=== PATIENT | female | born 1990 | race African-American/Black ===

== ENCOUNTER 2016-04-03 18:41 | Emergency (ER) | payer OTHER ==
[2016-04-03] MEDS ORDERED: KETOROLAC 30 MG/ML VIAL (J1885) As Ordered ONE (21:26)
--- NOTE | 2016-04-03 23:35 | EDDOCDS ---
Nurse's Notes [facility] Name: Billy Payne Age: 26 yrs Sex: Female : 1990 Arrival Date: 04/03/2016 Time: 18:41 Bed PR Private MD: GAIL Govea Diagnosis: Pain in left shoulder Presentation: 04/03 18:50 Presenting complaint: Patient states: dislocated shoulder yesterday and patient self hs1 reduced and was told to come be seen by SGT. Patient reports pain 9/10 pain. Adult Sepsis Screening: The patient does not have new or worsening altered mentation. Patient's respiratory rate is less than 22. Systolic blood pressure is greater than 100. Patient has a qSOFA score of 0- Negative Sepsis Screen. Suicide/Homicide risk assessment- the patient denies having any suicidal and/or homicidal ideations and does not present with any other emotional, behavioral or mental health complaints. 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 Transition of care: patient was not received from another setting of care. 18:50 Acuity: CARISA Level 4 hs1 18:50 Method Of Arrival: Walkin/Carried/Asstd hs1 Triage Assessment: 18:52 General: Appears in no apparent distress, Behavior is appropriate for age, cooperative. hs1 Pain: Location: anterior aspect of left shoulder and posterior aspect of left shoulder Pain currently is 9 out of 10 on a pain scale. Pt Declines HIV testing. Respiratory: No deficits noted. Derm: No deficits noted. Musculoskeletal: Range of motion limited in left shoulder. 21:08 I have visited this patient for a triage reassessment. 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 Tylenol 325 mg Oral tab 2 tabs (Last dose: 04/03/2016 15:00) - PMHx: none; - PSHx: none; - Social history: Smoking status: Patient states was never smoker of tobacco. No barriers to communication noted, The patient speaks fluent Northern Irish, Speaks appropriately for age. - Family history: No immediate family members are acutely ill. - : The pt / caregiver states he / she is not on anticoagulants. Home medication list is obtained from the patient. - Exposure Risk Screening:: None identified. Screenin:32 Screening information is obtained from the patient. Fall risk: No risks identified. nn1 Assistance ADL's: requires no assistance with activities of daily living. Abuse/DV Screen: The patient / caregiver reports he/she is: not in a situation that causes fear, pain or injury. Nutritional screening: No deficits noted. Advance Directives: There is no active DNR order. home support is adequate. Assessment: 21:07 Adult Sepsis Screening: The patient does not have new or worsening altered mentation. dsf Patient's respiratory rate is less than 22. Systolic blood pressure is greater than 100. Patient has a qSOFA score of 0- Negative Sepsis Screen. General: Appears in no apparent distress, Behavior is appropriate for age, cooperative. Pain: Location: left shoulder Pain currently is 10 out of 10 on a pain scale. Pain radiates to back Quality of pain is described as burning, sharp. Neurological: Level of Consciousness is awake, alert. Respiratory: Airway is patent Respiratory effort is even, unlabored, Respiratory pattern is regular, symmetrical. Derm: Skin is pink, warm & dry. 23:32 Reassessment: Patient states feeling better. Patient states symptoms have improved. nn1 General: Appears in no apparent distress, Behavior is appropriate for age, cooperative. Neurological: Level of Consciousness is awake, alert. Respiratory: Airway is patent Respiratory effort is even, unlabored, Respiratory pattern is regular, symmetrical. Derm: Skin is pink, warm & dry. 23:33 Musculoskeletal: Range of motion limited in left shoulder No deformity noted. nn1 Vital Signs: 18:43 BP 137 / 59; Pulse 71; Resp 18; Temp 99.1; Pulse Ox 100% ; Weight 61.23 kg; Height 5 elp ft. 4 in. (162.56 cm); 21:06 BP 115 / 55; Pulse 57; Resp 20; Temp 97.6(T); Pulse Ox 100% on R/A; Pain 10/10; dsf 23:29 BP 131 / 66; Pulse 51; Resp 20; Temp 96.4(O); Pulse Ox 100% on R/A; Pain 6/10; jmv 18:43 Body Mass Index 23.17 (61.23 kg, 162.56 cm) [facility] Vitals: 18:43 Log In Time: April 03, 2016 at 18:41. [facility] ED Course: 18:42 Patient visited by Radha Robison PCA. elp 18:42 Patient moved to Waiting elp 18:43 Jeferson [facility] is Private Physician. elp 18:43 Patient visited by Radha Robison PCA. elp 18:44 Patient moved to Pre RCE elp 18:51 Triage Initiated hs1 20:24 Patient name changed from Elver'hernesto\S\\S\Elmer\S\ to Elver'hernesto\S\ \S\Elmer. EDMS 21:04 Patient moved to Triage 2 dsf 21:08 Patient visited by Alisson Zamora RN. dsf 21:17 Judd [facility]-C [facility] ck7 21:17 Isaak Ramos MD is Attending Physician. ck7 21:17 Patient visited by Judd Mcghee RPA-C. ck7 21:29 Patient moved to PR2 / 26 nn1 21:30 [facility] Payment Agreement was scanned into [employer] and attached to record. ks16 21:34 Patient visited by Delmy Mistry. ajs 22:21 Patient visited by Judd Mcghee RPA-C. ck7 23:05 Patient visited by Judd Mcghee RPA-C. ck7 23:07 MICHELLE Govea is Referral Physician. ck7 23:29 Patient visited by Ronen Mulligan PCA. jmv 23:32 No IV's were initiated during this patient's visit. No procedures done that require nn1 assistance. 23:33 Sling applied to left arm. Patient with positive distal sensation and brisk distal nn1 capillary refill after application. 23:34 The patient / caregiver is instructed regarding the plan of care and ED course. nn1 Administered Medications: 21:40 Drug: ketorolac 60 mg [ketorolac 30 mg/mL (1 mL) injection solution (2 mL)] Route: IM; nn1 Site: left gluteus; Point of Care Testing: Urine : 21:34 hCG Reading: Negative; Control Reading: Positive; ajs Ranges: Order Results: There are currently no results for this order. Outcome: 23:07 Discharge ordered by Provider. ck7 23:33 Discharge Assessment: Patient awake, alert and oriented x 3. No cognitive and/or nn1 functional deficits noted. Patient verbalized understanding of disposition instructions. patient administered narcotics - no. The following High Risk Discharge criteria are identified: None. Discharged to home ambulatory. Condition: stable. No special radiology studies were completed. Property :Personal belongings accompany Pt. 23:34 Patient left the ED. nn1 Signatures: Dispatcher [employer] EDMA Blossom Bowman, RN RN hs1 Alisson ZamoraRN RN dsDelmy Manzano Christopher, RPA-C RPA-Cck7 Radha Robison, PATIENT SUPPORT ASSOCIATE PATIENT SUPPORT ASSOCIATE darrellp Dave Sheets,RN RN nn1 Giovanna Schwartz, Reg Reg ks16 Mulligan, Ronen, PATIENT SUPPORT ASSOCIATE PATIENT SUPPORT ASSOCIATE jmv MTDD
--- NOTE | 2016-04-03 23:35 | EDDOCDS ---
Physician Documentation [facility] Name: Billy Payne Age: 26 yrs Sex: Female : 1990 Arrival Date: 04/03/2016 Time: 18:41 Bed PR Private MD: GAIL Govea Disposition: 04/03/16 23:07 Discharged to Home/Self Care. Impression: Pain in left shoulder. - Condition is Stable. - Discharge Instructions: Shoulder Pain. - Prescriptions for Ibuprofen 600 mg Oral Tablet - take 1 tablet by ORAL route every 6 hours As needed take with food; 30 tablet. - Medication Reconciliation, Local Pharmacy Hours form. - Follow up: GAIL Govea; When: Tomorrow; Reason: Recheck today's complaints, Continuance of care. - Problem is new. - Symptoms have improved. - Notes: USE MOTRIN AND SLING INSTRUCTED, FOLLOW UP WITH YOUR DOCTOR TOMORROW, YOU MAY NEED A REFERRAL FOR ORTHOPEDIC EVALUATION Historical: - Allergies: Morphine; - Home Meds: 1. Tylenol 325 mg Oral tab 2 tabs (Last dose: 04/03/2016 15:00) - PMHx: none; - PSHx: none; - Social history: Smoking status: Patient states was never smoker of tobacco. No barriers to communication noted, The patient speaks fluent French, Speaks appropriately for age. - Family history: No immediate family members are acutely ill. - : The pt / caregiver states he / she is not on anticoagulants. Home medication list is obtained from the patient. - Exposure Risk Screening:: None identified. 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 4 in. (162.56 cm); 21:06 BP 115 / 55; Pulse 57; Resp 20; Temp 97.6(T); Pulse Ox 100% on R/A; Pain 10/10; dsf 23:29 BP 131 / 66; Pulse 51; Resp 20; Temp 96.4(O); Pulse Ox 100% on R/A; Pain 6/10; jmv 18:43 Body Mass Index 23.17 (61.23 kg, 162.56 cm) elp Procedures: 23:06 Fracture care/splinting: Splint applied to left arm using sling, applied by nurse. ck7 Examined by me, post splint application: neurovascular intact, 2+ distal pulses palpable, brisk capillary refill noted, Patient tolerated well. MDM: 21:22 ketorolac 60 mg IM once ordered. ck7 21:22 UCG by Nursing ordered. ck7 21:23 Shoulder, Complete Ordered. EDMS 21:23 Clavicle Ordered. EDMS 21:29 Financial registration complete. ks16 21:30 [facility] Payment Agreement was scanned into [employer] and attached to record. ks16 23:06 Sling ordered. ck7 Point of Care Testing: Urine : 21:34 hCG Reading: Negative; Control Reading: Positive; ajs Ranges: Administered Medications: 21:40 Drug: ketorolac 60 mg [ketorolac 30 mg/mL (1 mL) injection solution (2 mL)] Route: IM; nn1 Site: left gluteus; Signatures: Dispatcher [employer] Blossom Stokes, RN RN hs1 Judd Mcghee, RPA-C RPA-Cck7 Dave Sheets RN RN nn1 Giovanna Schwartz, Reg Reg ks16 The chart was reviewed and I authenticate all verbal orders and agree with the evaluation and treatment provided.Attachments: 21:30 [facility] Payment Agreement ks16 MTDD
--- NOTE | 2016-04-04 02:35 | REP ---
The clinical: Deformity/swelling. Technique: AP and axial views of the left clavicle. Findings: Sternoclavicular and acromioclavicular joints are normal. The clavicle is intact and there is no evidence for acute fracture or dislocation/subluxation. No degenerative changes are appreciated. Surrounding soft tissues are unremarkable. Impression: Normal left clavicle radiographs. Signed by Yaya Woods MD 04/04/2016 02:26 A
--- NOTE | 2016-04-04 02:37 | REP ---
Clinical: Deformity/swelling. . Technique: Internal rotation, external rotation, and Y view left shoulder . Findings: No acute fracture or dislocation. The acromioclavicular and glenohumeral joints are intact. No periarticular calcifications or degenerative changes are appreciated. Sub acromial space is normal. Surrounding soft tissues are unremarkable. Impression: Normal left shoulder radiographs. Signed by Yaya Woods MD 04/04/2016 02:28 A
--- NOTE | 2016-04-06 00:35 | EDDOCDS ---
Physician Documentation [facility] Name: Billy Payne Age: 26 yrs Sex: Female : 1990 Arrival Date: 04/03/2016 Time: 18:41 Bed PR Private MD: GAIL Govea Disposition: 04/03/16 23:07 Discharged to Home/Self Care. Impression: Pain in left shoulder. - Condition is Stable. - Discharge Instructions: Shoulder Pain. - Prescriptions for Ibuprofen 600 mg Oral Tablet - take 1 tablet by ORAL route every 6 hours As needed take with food; 30 tablet. - Medication Reconciliation, Local Pharmacy Hours form. - Follow up: GAIL Govea; When: Tomorrow; Reason: Recheck today's complaints, Continuance of care. - Problem is new. - Symptoms have improved. - Notes: USE MOTRIN AND SLING INSTRUCTED, FOLLOW UP WITH YOUR DOCTOR TOMORROW, YOU MAY NEED A REFERRAL FOR ORTHOPEDIC EVALUATION Historical: - Allergies: Morphine; - Home Meds: 1. Tylenol 325 mg Oral tab 2 tabs (Last dose: 04/03/2016 15:00) - PMHx: none; - PSHx: none; - Social history: Smoking status: Patient states was never smoker of tobacco. No barriers to communication noted, The patient speaks fluent Faroese, Speaks appropriately for age. - Family history: No immediate family members are acutely ill. - : The pt / caregiver states he / she is not on anticoagulants. Home medication list is obtained from the patient. - Exposure Risk Screening:: None identified. 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 4 in. (162.56 cm); 21:06 BP 115 / 55; Pulse 57; Resp 20; Temp 97.6(T); Pulse Ox 100% on R/A; Pain 10/10; dsf 23:29 BP 131 / 66; Pulse 51; Resp 20; Temp 96.4(O); Pulse Ox 100% on R/A; Pain 6/10; jmv 18:43 Body Mass Index 23.17 (61.23 kg, 162.56 cm) elp Procedures: 23:06 Fracture care/splinting: Splint applied to left arm using sling, applied by nurse. ck7 Examined by me, post splint application: neurovascular intact, 2+ distal pulses palpable, brisk capillary refill noted, Patient tolerated well. MDM: 21:22 ketorolac 60 mg IM once ordered. ck7 21:22 UCG by Nursing ordered. ck7 21:23 Shoulder, Complete Ordered. EDMS 21:23 Clavicle Ordered. EDMS 21:29 Financial registration complete. ks16 21:30 [facility] Payment Agreement was scanned into [employer] and attached to record. ks16 23:06 Sling ordered. ck7 04/04 12:10 T-Sheet-- Draft Copy was scanned into [employer] and attached to record. gb Point of Care Testing: Urine : 04/03 21:34 hCG Reading: Negative; Control Reading: Positive; ajs Ranges: Administered Medications: 21:40 Drug: ketorolac 60 mg [ketorolac 30 mg/mL (1 mL) injection solution (2 mL)] Route: IM; nn1 Site: left gluteus; Signatures: Dispatcher [employer] EDRI Alisia Hull, Reg Reg gb Blossom Bowman, RN RN hs1 Judd Mcghee RPA-C RPA-Cck7 Dave SheetsRN RN nn1 Giovanna Schwartz, Reg Reg ks16 The chart was reviewed and I authenticate all verbal orders and agree with the evaluation and treatment provided.Attachments: :30 [facility] Payment Agreement ks16 04/04 12:10 T-Sheet-- Draft Copy gb Chart Complete MTDD
--- NOTE | 2016-04-06 00:35 | EDDOCDS ---
Nurse's Notes [facility] Name: Billy Payne Age: 26 yrs Sex: Female : 1990 Arrival Date: 04/03/2016 Time: 18:41 Bed PR Private MD: GAIL Govea Diagnosis: Pain in left shoulder Presentation: 04/03 18:50 Presenting complaint: Patient states: dislocated shoulder yesterday and patient self hs1 reduced and was told to come be seen by SGT. Patient reports pain 9/10 pain. Adult Sepsis Screening: The patient does not have new or worsening altered mentation. Patient's respiratory rate is less than 22. Systolic blood pressure is greater than 100. Patient has a qSOFA score of 0- Negative Sepsis Screen. Suicide/Homicide risk assessment- the patient denies having any suicidal and/or homicidal ideations and does not present with any other emotional, behavioral or mental health complaints. 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 Transition of care: patient was not received from another setting of care. 18:50 Acuity: CARISA Level 4 hs1 18:50 Method Of Arrival: Walkin/Carried/Asstd hs1 Triage Assessment: 18:52 General: Appears in no apparent distress, Behavior is appropriate for age, cooperative. hs1 Pain: Location: anterior aspect of left shoulder and posterior aspect of left shoulder Pain currently is 9 out of 10 on a pain scale. Pt Declines HIV testing. Respiratory: No deficits noted. Derm: No deficits noted. Musculoskeletal: Range of motion limited in left shoulder. 21:08 I have visited this patient for a triage reassessment. 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 Tylenol 325 mg Oral tab 2 tabs (Last dose: 04/03/2016 15:00) - PMHx: none; - PSHx: none; - Social history: Smoking status: Patient states was never smoker of tobacco. No barriers to communication noted, The patient speaks fluent Faroese, Speaks appropriately for age. - Family history: No immediate family members are acutely ill. - : The pt / caregiver states he / she is not on anticoagulants. Home medication list is obtained from the patient. - Exposure Risk Screening:: None identified. Screenin:32 Screening information is obtained from the patient. Fall risk: No risks identified. nn1 Assistance ADL's: requires no assistance with activities of daily living. Abuse/DV Screen: The patient / caregiver reports he/she is: not in a situation that causes fear, pain or injury. Nutritional screening: No deficits noted. Advance Directives: There is no active DNR order. home support is adequate. Assessment: 21:07 Adult Sepsis Screening: The patient does not have new or worsening altered mentation. dsf Patient's respiratory rate is less than 22. Systolic blood pressure is greater than 100. Patient has a qSOFA score of 0- Negative Sepsis Screen. General: Appears in no apparent distress, Behavior is appropriate for age, cooperative. Pain: Location: left shoulder Pain currently is 10 out of 10 on a pain scale. Pain radiates to back Quality of pain is described as burning, sharp. Neurological: Level of Consciousness is awake, alert. Respiratory: Airway is patent Respiratory effort is even, unlabored, Respiratory pattern is regular, symmetrical. Derm: Skin is pink, warm & dry. 23:32 Reassessment: Patient states feeling better. Patient states symptoms have improved. nn1 General: Appears in no apparent distress, Behavior is appropriate for age, cooperative. Neurological: Level of Consciousness is awake, alert. Respiratory: Airway is patent Respiratory effort is even, unlabored, Respiratory pattern is regular, symmetrical. Derm: Skin is pink, warm & dry. 23:33 Musculoskeletal: Range of motion limited in left shoulder No deformity noted. nn1 Vital Signs: 18:43 BP 137 / 59; Pulse 71; Resp 18; Temp 99.1; Pulse Ox 100% ; Weight 61.23 kg; Height 5 elp ft. 4 in. (162.56 cm); 21:06 BP 115 / 55; Pulse 57; Resp 20; Temp 97.6(T); Pulse Ox 100% on R/A; Pain 10/10; dsf 23:29 BP 131 / 66; Pulse 51; Resp 20; Temp 96.4(O); Pulse Ox 100% on R/A; Pain 6/10; jmv 18:43 Body Mass Index 23.17 (61.23 kg, 162.56 cm) [facility] Vitals: 18:43 Log In Time: April 03, 2016 at 18:41. [facility] ED Course: 18:42 Patient visited by Radha Robison PCA. elp 18:42 Patient moved to Waiting elp 18:43 Jeferson [facility] is Private Physician. elp 18:43 Patient visited by Radha Robison PCA. elp 18:44 Patient moved to Pre RCE elp 18:51 Triage Initiated hs1 20:24 Patient name changed from Elver'hernesto\S\\S\Elmer\S\ to Elver'hernesto\S\ \S\Elmer. EDMS 21:04 Patient moved to Triage 2 dsf 21:08 Patient visited by Alisson Zamora RN. dsf 21:17 [facility] ck7 21:17 Isaak Ramos MD is Attending Physician. ck7 21:17 Patient visited by Judd Mcghee RPA-C. ck7 21:29 Patient moved to PR2 / nn1 21:30 [facility] Payment Agreement was scanned into [employer] and attached to record. ks16 21:34 Patient visited by Delmy Mistry. ajs 22:21 Patient visited by Judd Mcghee RPA-C. ck7 23:05 Patient visited by Judd Mcghee RPA-C. ck7 23:07 Jeferson [facility] is Referral Physician. ck7 23:29 Patient visited by Ronen Mulligan PCA. jmv 23:32 No IV's were initiated during this patient's visit. No procedures done that require nn1 assistance. 23:33 Sling applied to left arm. Patient with positive distal sensation and brisk distal nn1 capillary refill after application. 23:34 The patient / caregiver is instructed regarding the plan of care and ED course. nn1 08 02:39 Clavicle Returned. EDMS 02:39 Shoulder, Complete Returned. EDMS 12:10 T-Sheet-- Draft Copy was scanned into [employer] and attached to record. gb Administered Medications: 04/03 21:40 Drug: ketorolac 60 mg [ketorolac 30 mg/mL (1 mL) injection solution (2 mL)] Route: IM; nn1 Site: left gluteus; Point of Care Testing: Urine : 21:34 hCG Reading: Negative; Control Reading: Positive; ajs Ranges: Order Results: Radiology Order: Shoulder, Complete Test: Shoulder, Complete REASON FOR EXAMINATION: Deformity/Swelling; Clinical: Deformity/swelling. .; ; Technique: Internal rotation, external rotation, and Y view left shoulder .; ; Findings:; No acute fracture or dislocation. The acromioclavicular and glenohumeral joints; are intact. No periarticular calcifications or degenerative changes are; appreciated. Sub acromial space is normal. Surrounding soft tissues are; unremarkable.; ; Impression:; Normal left shoulder radiographs.; ; ; Signed by; Yaya Woods MD 04/04/2016 02:28 A; Radiology Order: Clavicle Test: Clavicle REASON FOR EXAMINATION: Deformity/Swelling; The clinical: Deformity/swelling.; ; Technique: AP and axial views of the left clavicle.; ; Findings:; Sternoclavicular and acromioclavicular joints are normal. The clavicle is intact; and there is no evidence for acute fracture or dislocation/subluxation. No; degenerative changes are appreciated. Surrounding soft tissues are; unremarkable.; ; Impression:; Normal left clavicle radiographs.; ; ; Signed by; Yaya Woods MD 04/04/2016 02:26 A; Outcome: 23:07 Discharge ordered by Provider. ck7 23:33 Discharge Assessment: Patient awake, alert and oriented x 3. No cognitive and/or nn1 functional deficits noted. Patient verbalized understanding of disposition instructions. patient administered narcotics - no. The following High Risk Discharge criteria are identified: None. Discharged to home ambulatory. Condition: stable. No special radiology studies were completed. Property :Personal belongings accompany Pt. 23:34 Patient left the ED. nn1 Signatures: Dispatcher [employer] EDFL Alisia Hull, Reg Reg gb Blossom Bowman RN RN hs1 Alisson Zamora,RN RN dsf Delmy Mistry Christopher, RPA-C RPA-Cck7 Radha Robison, AIRCRAFT ENGINE CYLINDER MECHANIC AIRCRAFT ENGINE CYLINDER MECHANIC Dave Nassar,RN RN nn1 Giovanna Schwartz, Reg Reg ks16 Ronen Mulligan, AIRCRAFT ENGINE CYLINDER MECHANIC AIRCRAFT ENGINE CYLINDER MECHANIC jmv Chart Complete MTDD
--- NOTE | 2016-04-06 00:35 | EDDOCDS ---
Physician Documentation [facility] Name: Billy Payne Age: 26 yrs Sex: Female : 1990 Arrival Date: 04/03/2016 Time: 18:41 Bed PR Private MD: GAIL Govea Disposition: 04/03/16 23:07 Discharged to Home/Self Care. Impression: Pain in left shoulder. - Condition is Stable. - Discharge Instructions: Shoulder Pain. - Prescriptions for Ibuprofen 600 mg Oral Tablet - take 1 tablet by ORAL route every 6 hours As needed take with food; 30 tablet. - Medication Reconciliation, Local Pharmacy Hours form. - Follow up: GAIL Govea; When: Tomorrow; Reason: Recheck today's complaints, Continuance of care. - Problem is new. - Symptoms have improved. - Notes: USE MOTRIN AND SLING INSTRUCTED, FOLLOW UP WITH YOUR DOCTOR TOMORROW, YOU MAY NEED A REFERRAL FOR ORTHOPEDIC EVALUATION Historical: - Allergies: Morphine; - Home Meds: 1. Tylenol 325 mg Oral tab 2 tabs (Last dose: 04/03/2016 15:00) - PMHx: none; - PSHx: none; - Social history: Smoking status: Patient states was never smoker of tobacco. No barriers to communication noted, The patient speaks fluent Russian, Speaks appropriately for age. - Family history: No immediate family members are acutely ill. - : The pt / caregiver states he / she is not on anticoagulants. Home medication list is obtained from the patient. - Exposure Risk Screening:: None identified. 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 4 in. (162.56 cm); 21:06 BP 115 / 55; Pulse 57; Resp 20; Temp 97.6(T); Pulse Ox 100% on R/A; Pain 10/10; dsf 23:29 BP 131 / 66; Pulse 51; Resp 20; Temp 96.4(O); Pulse Ox 100% on R/A; Pain 6/10; jmv 18:43 Body Mass Index 23.17 (61.23 kg, 162.56 cm) elp Procedures: 23:06 Fracture care/splinting: Splint applied to left arm using sling, applied by nurse. ck7 Examined by me, post splint application: neurovascular intact, 2+ distal pulses palpable, brisk capillary refill noted, Patient tolerated well. MDM: 21:22 ketorolac 60 mg IM once ordered. ck7 21:22 UCG by Nursing ordered. ck7 21:23 Shoulder, Complete Ordered. EDMS 21:23 Clavicle Ordered. EDMS 21:29 Financial registration complete. [email or web address] 21:30 [facility] Payment Agreement was scanned into VFA and attached to record. [email or web address] 23:06 Sling ordered. ck7 04/04 12:10 T-Sheet-- Draft Copy was scanned into VFA and attached to record. gb Point of Care Testing: Urine : 04/03 21:34 hCG Reading: Negative; Control Reading: Positive; ajs Ranges: Administered Medications: 21:40 Drug: ketorolac 60 mg [ketorolac 30 mg/mL (1 mL) injection solution (2 mL)] Route: IM; nn1 Site: left gluteus; Signatures: Dispatcher [employer] EDSC Alisia Hull, Reg Reg gb Blossom Bowman, RN RN hs1 Judd Mcghee RPA-C [id number] Dave SheetsRN RN nn1 Giovanna Schwartz, Reg Reg [email or web address] The chart was reviewed and I authenticate all verbal orders and agree with the evaluation and treatment provided.Attachments: :30 [facility] Payment Agreement [email or web address] 04/04 12:10 T-Sheet-- Draft Copy gb Chart Complete MTDD
== END 2016-04-03 23:34 | disposition home or self-care (01) ==
LOC: M ED 18:41
DX: M25.512 Pain in left shoulder (principal)
CPT/HCPCS: 73000; 73030; 81025; 96372; 99284; J1885

== ENCOUNTER → 2016-05-25 | Outpatient (CLI) | payer OTHER ==
[~2016-05-25] MED LIST: CONRAY-43 43% 50ML VIAL (Q9960) As Ordered ONE
--- NOTE | 2016-05-25 10:28 | REP ---
MRI LEFT SHOULDER WITHOUT AND WITH CONTRAST ARTHROGRAM: 05/25/2016 CLINICAL HISTORY: Recurrent shoulder dislocations for MR arthrogram. COMPARISON X-RAY: 04/03/2016. TECHNIQUE: Coronal T1 with T2 fat suppressed coronal and axial images followed by gadolinium arthrogram injection of the left shoulder with T1 fat suppressed axial and coronal images and T2 fat suppressed coronal and sagittal images provided. FINDINGS: The AC joint shows no hypertrophic change or impingement at the musculotendinous junction rotator cuff. There is a small peripheral acromial spur with the small amount of subacromial bursal fluid present. Supraspinatus tendinopathy tendinosis is mild and there is no tendon retraction or full-thickness tear, atrophy of the muscle belly or subdeltoid bursal fluid. The bony coracoid is unremarkable. The coracoclavicular ligaments are best seen on the axial postcontrast PD sequence with a coronal T1 field of view, not including the ligaments. Cortical humeral ligaments intact. Humeral head shows subchondral cystic change anteriorly and medial to the bicipital groove. The biceps tendon is well seated in that groove. There is no glenohumeral joint effusion. There is only trace fluid in the joint. There is no paralabral cyst. I see no fluid in the subcoracoid bursa. The subscapularis tendon and muscle are grossly intact. There is a type 2 anterior capsular insertion on the anterior glenoid. There is some slight rounding of the posterior labrum and stretching of the capsular attachment posteriorly. There is no Hill-Sachs deformity or bony Bankart lesion. No dislocation or current subluxation noted. Superior labrum shows a fairly shallow sulcus. Contrast does not appear to extend into the substance of the labrum. No anterior or superior definite labral tear. Spinal glenoid notch shows no mass or fluid collection. IMPRESSION: 1. Rounded labrum and some capsular stretching posteriorly which may reflect some laxity of the joint or posterior labral degeneration. No Hill-Sachs deformity, bony Bankart lesion or acute subluxation. 2. Glenohumeral joint without effusion, loose body or chondromalacia. No osteochondral defect. 3. Supraspinatus with minimal tendinopathy and trace subacromial bursal fluid. No subdeltoid bursal fluid and no communication to the subacromial subdeltoid spaces after intra-articular contrast injection for arthrogram. 4. Biceps tendon well-seated in its groove and the biceps labral complex intact. 5. Coracoclavicular and coracohumeral ligaments intact. 6. Subchondral cyst in the anterior medial aspect of the humeral head with subscapularis, infraspinatus and teres minor tendons and muscles intact. 7. Superior labrum slight sulcus evident but no contrast tracking into it on the arthrogram images and no definite anterior labral tear, either. Signed by Patrick Woodard MD 05/25/2016 08:07 P
--- NOTE | 2016-05-25 18:21 | REP ---
LEFT SHOULDER ARTHROGRAM: The procedure was performed under the direct supervision of Dr. Woodard. The benefits and risks including but not limited to pain, infection, bleeding, and anaphylaxis were explained to the patient and informed consent was obtained. The left glenohumeral joint space was localized using fluoroscopic guidance. The skin was prepped and draped in a sterile fashion. 1% Lidocaine was used a local anesthetic. Using fluoroscopic guidance a 22-gauge needle was inserted and then advanced into the joint. 0.5 mL of Conray-43 was injected to verify placement. 11 mL of a solution containing 20 mL of sterile saline and 0.15 mL of ProHance was injected. The needle was removed and the patient was taken to MRI for postprocedural imaging. The patient tolerated the procedure well and there were no immediate complications. 1 second of fluoroscopic time was utilized for this procedure. Reviewed by JOSELIN Soriano 05/28/2016 06:53 PEdited and Signed by Patrick Woodard MD 05/31/2016 09:52 A
== END | disposition home or self-care (01) ==
LOC: M RADPRO 06:40
PROVIDERS: ATTEND Family Medicine
DX: M75.82 Other shoulder lesions, left shoulder (principal); M85.422 Solitary bone cyst, left humerus
CPT/HCPCS: 23350; 73223; 77002; A9576; Q9960

== ENCOUNTER 2016-10-16 05:44 | Emergency (ER) | payer OTHER ==
[2016-10-16] MEDS ORDERED: NORCO, ANEXSIA 5/325MG TABLET (HYDROcodone/ACETAMINOPHEN) PO ONE (06:45)
[2016-10-16 07:26] VITALS: BP 118/57
[2016-12-23] MEDS ORDERED: PROT1TAB2 PO (14:46)
[2016-12-23] MEDS ORDERED: CARA1TAB6 PO (14:46)
== END 2016-10-16 07:27 | disposition home or self-care (01) ==
LOC: M ED 05:44
DX: K08.89 Other specified disorders of teeth and supporting structures (principal); F17.200 Nicotine dependence, unspecified, uncomplicated; Z91.018 Allergy to other foods; Z91.013 Allergy to seafood

== ENCOUNTER 2016-10-30 07:39 | Emergency (ER) | payer OTHER ==
[~2016-10-30] VITALS: Ht 162.6 cm; Wt 65.9 kg
[2016-10-30] MEDS ORDERED: ONDANSETRON 4MG/2ML VIAL (J2405) IV ONE (08:45)
[2016-10-30] MEDS ORDERED: KETOROLAC 30 MG/ML VIAL (J1885) IV ONE (08:45)
[2016-10-30] MEDS ORDERED: NS 1,000 ML IV ONE (08:45)
[2016-10-30 09:03] LABS: CONTROL LINE UCG INT CTR LINE PRESENT
[2016-10-30 09:04] LABS: ALBUMIN 3.2 GM/DL (3.2-5.2); ALBUMIN/GLOBULIN RATIO 0.84 (1.00-1.93); ALKALINE PHOSPHATASE 78 U/L (45-117); ALT/SGPT 22 U/L (12-78); ANION GAP 8 MEQ/L (8-16); AST/SGOT 13 U/L (15-37); BILIRUBIN,DIRECT < 0.1 MG/DL (0.0-0.2); BILIRUBIN,TOTAL 0.2 MG/DL (0.2-1.0); BLOOD UREA NITROGEN 12 MG/DL (7-18); CALCIUM LEVEL 8.8 MG/DL (8.5-10.1); CARBON DIOXIDE LEVEL 24 MEQ/L (21-32); CHLORIDE LEVEL 112 MEQ/L (98-107); CREATININE FOR GFR 0.77 MG/DL (0.55-1.02); GLOMERULAR FILTRATION RATE > 60.0 (>60); GLUCOSE, FASTING 99 MG/DL (70-105); POTASSIUM SERUM 4.2 MEQ/L (3.5-5.1); SODIUM LEVEL 144 MEQ/L (136-145)
[2016-10-30 09:10] LABS: BASO % 0.3 % (0.0-1.0); EOS # 0.2 K/mm3 (0.0-0.50); EOS % 2.2 % (0.0-3.0); LARGE UNSTAINED CELL # 0.2 K/mm3 (0.0-0.4); LARGE UNSTAINED CELL % 1.9 % (0.0-4.0); LYMPH # 2.1 K/mm3 (1.5-6.5); LYMPH % 25.7 % (24.0-44.0); MEAN CORPUSCULAR HEMOGLOBIN 31.1 pg (27.0-33.0); MEAN CORPUSCULAR HGB CONC 33.6 g/dl (32.0-36.5); MEAN CORPUSCULAR VOLUME 92.7 fl (80.0-96.0); MONO # 0.5 K/mm3 (0.0-0.8); MONO % 6.4 % (0.0-5.0); NEUTROPHILS # 5.2 K/mm3 (1.8-7.7); NEUTROPHILS % 63.5 % (36.0-66.0); PLATELET COUNT, AUTOMATED 296 k/mm3 (150-450); RED CELL DISTRIBUTION WIDTH 13.1 % (11.5-14.5); WHITE BLOOD COUNT 8.3 K/mm3 (4.0-10.0)
[2016-10-30] MEDS ORDERED: ZOFR4TAB3 PO (09:29)
[2016-10-30] MEDS ORDERED: PRIL20TA2 PO (09:29)
[2016-10-30 09:43] VITALS: BP 123/73
[2016-12-23] MEDS ORDERED: CARA1TAB6 PO (14:46)
[2016-12-23] MEDS ORDERED: PROT1TAB2 PO (14:46)
== END 2016-10-30 09:44 | disposition home or self-care (01) ==
LOC: M ED 07:39
DX: A08.4 Viral intestinal infection, unspecified (principal); Z79.899 Other long term (current) drug therapy; Z91.013 Allergy to seafood; Z91.018 Allergy to other foods; F17.210 Nicotine dependence, cigarettes, uncomplicated
CPT/HCPCS: 80048; 80076; 81001; 83690; 84703; 85025; 96374; 96375; 99283; J1885; J2405

== ENCOUNTER 2016-10-31 12:26 | Emergency (ER) | payer OTHER ==
[~2016-10-31] VITALS: Ht 162.6 cm; Wt 65.9 kg
[~2016-10-31 12:26] MED LIST changes: -CONRAY-43 43% 50ML VIAL (Q9960) As Ordered ONE; +PRIL20TA2 PO; +ZOFR4TAB3 PO
--- NOTE | 2016-10-31 14:36 | REP ---
ABDOMEN SERIES: Two views. HISTORY: Upper abdominal pain. FINDINGS: Clothing artifact is seen. The bowel gas pattern is normal. No mass, organomegaly, or pathologic calcification is seen. Psoas margins are symmetric. Flank stripes are intact. IMPRESSION: Clothing artifact seen. Otherwise no significant finding. Signed by Noel Anguiano MD 10/31/2016 06:35 P
[2016-10-31 14:47] VITALS: BP 130/88
[2016-12-23] MEDS ORDERED: PROT1TAB2 PO (14:46)
[2016-12-23] MEDS ORDERED: CARA1TAB6 PO (14:46)
== END 2016-10-31 14:49 | disposition home or self-care (01) ==
LOC: M ED 12:26
DX: R10.13 Epigastric pain (principal); R11.2 Nausea with vomiting, unspecified; K21.9 Gastro-esophageal reflux disease without esophagitis; F17.200 Nicotine dependence, unspecified, uncomplicated; Z79.899 Other long term (current) drug therapy; Z91.013 Allergy to seafood; Z91.018 Allergy to other foods

== ENCOUNTER 2016-11-16 10:43 | Emergency (ER) | payer OTHER ==
[~2016-11-16] VITALS: Ht 165.1 cm; Wt 67.3 kg
[2016-11-16 10:44] VITALS: BP 112/54
[2016-11-16] MEDS ORDERED: TRAM1CAP15 PO (10:52)
[2016-11-16] MEDS ORDERED: OMEP40CA2 PO (10:52)
[2016-11-16 11:16] LABS: CONTROL LINE UCG INT CTR LINE PRESENT
[2016-11-16] MEDS ORDERED: GI COCKTAIL 50ML BTL(HYOSCYAMINE/MAALOX/LIDOCAINE VISCOUS)(1:3:1) PO ONE (11:45)
[2016-12-23] MEDS ORDERED: PROT1TAB2 PO (14:46)
[2016-12-23] MEDS ORDERED: CARA1TAB6 PO (14:46)
== END 2016-11-16 11:41 | disposition home or self-care (01) ==
LOC: M ED 10:43
DX: R10.13 Epigastric pain (principal); R11.0 Nausea; F17.200 Nicotine dependence, unspecified, uncomplicated; Z79.899 Other long term (current) drug therapy; Z91.013 Allergy to seafood; Z91.018 Allergy to other foods

== ENCOUNTER 2016-11-19 07:59 | Emergency (ER) | payer OTHER ==
[~2016-11-19] VITALS: Ht 162.6 cm; Wt 67.3 kg
[~2016-11-19 07:59] MED LIST changes: +OMEP40CA2 PO; +TRAM1CAP15 PO
[2016-11-19] MEDS ORDERED: ONDANSETRON 4MG/2ML VIAL (J2405) IV ONE (08:30)
[2016-11-19] MEDS ORDERED: NS 1,000 ML IV ONE (08:30)
[2016-11-19] MEDS ORDERED: KETOROLAC 30 MG/ML VIAL (J1885) IV ONE (08:30)
[2016-11-19] MEDS ORDERED: GASTROGRAFIN SOLUTION 30ML (Q9963) As Ordered ONE (08:48)
[2016-11-19] MEDS ORDERED: GASTROGRAFIN SOLUTION 30ML PO ONE (08:50)
[2016-11-19 09:14] LABS: ADD MANUAL DIFFER YES; MEAN CORPUSCULAR HEMOGLOBIN 31.5 pg (27.0-33.0); MEAN CORPUSCULAR HGB CONC 34.4 g/dl (32.0-36.5); MEAN CORPUSCULAR VOLUME 91.5 fl (80.0-96.0); PLATELET COUNT, AUTOMATED 311 k/mm3 (150-450); RED CELL DISTRIBUTION WIDTH 12.8 % (11.5-14.5); WHITE BLOOD COUNT 7.3 K/mm3 (4.0-10.0)
[2016-11-19] MEDS ORDERED: GASTROGRAFIN SOLUTION 30ML (Q9963) PO SCH (09:15)
[2016-11-19] MEDS ORDERED: GASTROGRAFIN SOLUTION 30ML (Q9963) PO ONE (09:20)
[2016-11-19 09:25] LABS: ALBUMIN 3.4 GM/DL (3.2-5.2); ALBUMIN/GLOBULIN RATIO 1.03 (1.00-1.93); ALKALINE PHOSPHATASE 71 U/L (45-117); ALT/SGPT 17 U/L (12-78); AMYLASE 59 U/L (25-115); ANION GAP 7 MEQ/L (8-16); AST/SGOT 8 U/L (15-37); BILIRUBIN,DIRECT < 0.1 MG/DL (0.0-0.2); BILIRUBIN,TOTAL 0.4 MG/DL (0.2-1.0); BLOOD UREA NITROGEN 8 MG/DL (7-18); CALCIUM LEVEL 8.4 MG/DL (8.5-10.1); CARBON DIOXIDE LEVEL 26 MEQ/L (21-32); CHLORIDE LEVEL 106 MEQ/L (98-107); CREATININE FOR GFR 0.72 MG/DL (0.55-1.02); GLOMERULAR FILTRATION RATE > 60.0 (>60); GLUCOSE, FASTING 89 MG/DL (70-105); POTASSIUM SERUM 3.5 MEQ/L (3.5-5.1); SODIUM LEVEL 139 MEQ/L (136-145); TOTAL PROTEIN 6.7 GM/DL (6.4-8.2)
[2016-11-19 09:52] LABS: BASOPHILS 1 % (0-4); EOSINOPHILS 2 % (0-5)
[2016-11-19 09:53] LABS: ANISOCYTOSIS 1+
[2016-11-19] MEDS ORDERED: ISOVUE-370 76% 100ML VIAL (Q9967) As Ordered ONE (10:04)
[2016-11-19] MEDS ORDERED: CITR1SOL PO (10:56)
--- NOTE | 2016-11-19 10:59 | REP ---
REASON FOR EXAMINATION: Abdominal pain. COMPARISON EXAMINATION: None. IV CONTRAST: 100 mL Isovue 370. The lung bases are clear. In the posterior segment of the right lobe of the liver there is a round 1.5 cm size focal area of intense contrast enhancement. The liver is otherwise unremarkable. The gallbladder, spleen, pancreas, adrenal glands, and kidneys are within renita limits. The abdominal aorta and para-aortic regions are within normal limits. There is no free fluid or free air in the abdomen. There is less than optimal bowel contrast opacification. There is no evidence of an intra-abdominal mass or adenopathy. CT PELVIS: There is a trace amount of free pelvis fluid, probably physiologic. There is poor pelvic bowel contrast opacification. Two centimeter-sized bilateral adnexal low density structures are seen possibly representing bilateral ovarian simple cysts. There is no adenopathy. Bone window technique throughout the examination shows the osseous structures to be within normal limits. IMPRESSION: 1. Possible small bilateral ovarian cysts. Ultrasonography would be confirmatory. 2. There is an enhancing nodule in the posterior segment of the right lobe of the liver as described above, the exact etiology of which is uncertain. It potentially represents a small vascular lesion or an adenoma. No dynamic imaging was ordered or performed on this examination and there are no precontrast enhanced images to review. I would recommend followup with pre and post gadolinium-enhanced hepatic MRI for complete evaluation. Signed by Rodolfo Andersen DO 11/19/2016 02:23 P
[2016-11-19 11:01] VITALS: BP 122/66
[2016-12-23] MEDS ORDERED: PROT1TAB2 PO (14:46)
[2016-12-23] MEDS ORDERED: CARA1TAB6 PO (14:46)
== END 2016-11-19 11:15 | disposition home or self-care (01) ==
LOC: M ED 07:59
DX: K59.00 Constipation, unspecified (principal); K76.89 Other specified diseases of liver; R11.2 Nausea with vomiting, unspecified; F17.210 Nicotine dependence, cigarettes, uncomplicated; Z79.899 Other long term (current) drug therapy; Z91.013 Allergy to seafood; Z91.018 Allergy to other foods
CPT/HCPCS: 74177; 80048; 80076; 81001; 81025; 82150; 83690; 85025; 96374; 96375; 99284; J1885; J2405; Q9963; Q9967

== ENCOUNTER 2016-11-25 10:27 | Emergency (ER) | payer OTHER ==
[~2016-11-25] VITALS: Ht 162.6 cm; Wt 67.3 kg
[~2016-11-25 10:27] MED LIST changes: +CITR1SOL PO
[2016-11-25 10:28] VITALS: BP 133/64
[2016-11-25] MEDS ORDERED: IBUP-1114 PO (10:36)
[2016-11-25] MEDS ORDERED: AUGM875T28 PO (11:12)
[2016-11-25] MEDS ORDERED: MUCI600T37 PO (11:12)
[2016-11-25] MEDS ORDERED: SALI0.6523 (11:12)
[2016-12-23] MEDS ORDERED: PROT1TAB2 PO (14:46)
[2016-12-23] MEDS ORDERED: CARA1TAB6 PO (14:46)
== END 2016-11-25 11:18 | disposition home or self-care (01) ==
LOC: M ED 10:27
DX: J02.9 Acute pharyngitis, unspecified (principal); J00 Acute nasopharyngitis [common cold]; M25.519 Pain in unspecified shoulder; K21.9 Gastro-esophageal reflux disease without esophagitis; Z79.899 Other long term (current) drug therapy; Z91.013 Allergy to seafood; Z91.018 Allergy to other foods

== ENCOUNTER 2016-11-29 12:22 | Emergency (ER) | payer OTHER ==
[~2016-11-29 12:22] MED LIST changes: +AUGM875T28 PO; +IBUP-1114 PO; +MUCI600T37 PO; +SALI0.6523
[2016-11-29 13:32] LABS: MEAN CORPUSCULAR HEMOGLOBIN 29.6 pg (27.0-33.0); MEAN CORPUSCULAR HGB CONC 33.1 g/dl (32.0-36.5); MEAN CORPUSCULAR VOLUME 89.6 fl (80.0-96.0); RED CELL DISTRIBUTION WIDTH 12.8 % (11.5-14.5); WHITE BLOOD COUNT 9.2 10^3/uL (4.0-10.0)
[2016-11-29 13:58] LABS: CONTROL LINE HCG INT CTR LINE PRESENT
[2016-11-29 14:13] LABS: ALBUMIN 3.6 GM/DL (3.2-5.2); ALKALINE PHOSPHATASE 78 U/L (45-117); ALT/SGPT 19 U/L (12-78); ANION GAP 9 MEQ/L (8-16); AST/SGOT 10 U/L (15-37); BILIRUBIN,DIRECT < 0.1 MG/DL (0.0-0.2); BILIRUBIN,TOTAL 0.2 MG/DL (0.2-1.0); BLOOD UREA NITROGEN 15 MG/DL (7-18); CALCIUM LEVEL 9.1 MG/DL (8.5-10.1); CARBON DIOXIDE LEVEL 24 MEQ/L (21-32); CHLORIDE LEVEL 107 MEQ/L (98-107); CREATININE FOR GFR 0.77 MG/DL (0.55-1.02); GLOMERULAR FILTRATION RATE > 60.0 (>60); GLUCOSE, FASTING 88 MG/DL (70-105); POTASSIUM SERUM 4.2 MEQ/L (3.5-5.1); SODIUM LEVEL 140 MEQ/L (136-145); TOTAL PROTEIN 7.2 GM/DL (6.4-8.2)
[2016-11-29 14:32] LABS: METHADONE URINE NEGATIVE (NEGATIVE)
[2016-11-29 16:02] VITALS: BP 127/65
[2016-12-23] MEDS ORDERED: PROT1TAB2 PO (14:46)
[2016-12-23] MEDS ORDERED: CARA1TAB6 PO (14:46)
== END 2016-11-29 16:07 | disposition home or self-care (01) ==
LOC: M ED 12:22
DX: F43.0 Acute stress reaction (principal); Z79.899 Other long term (current) drug therapy; Z91.013 Allergy to seafood; Z91.018 Allergy to other foods
CPT/HCPCS: 80048; 80076; 80307; 84443; 84703; 85027; 99284; G0480

== ENCOUNTER 2016-12-07 12:22 | Emergency (ER) | payer OTHER ==
[~2016-12-07] VITALS: Ht 165.1 cm; Wt 67.3 kg
[2016-12-07] MEDS ORDERED: DICYCLOMINE INJ 20MG/2ML (J0500) IM ONE (13:45)
[2016-12-07] MEDS ORDERED: METOCLOPRAMIDE 10 MG TAB PO ONE (13:45)
[2016-12-07 13:56] LABS: BASO # 0.1 10^3/uL (0.0-0.2); BASO % 0.5 % (0.0-1.0); EOS # 0.2 10^3/uL (0.0-0.50); EOS % 1.6 % (0.0-3.0); IMMATURE GRANULOCYTE % 0.2 % (0-0); LYMPH # 2.9 10^3/uL (1.5-6.5); LYMPH % 31.5 % (24.0-44.0); MEAN CORPUSCULAR HGB CONC 33.2 g/dl (32.0-36.5); MEAN CORPUSCULAR VOLUME 90.4 fl (80.0-96.0); MONO # 0.5 10^3/uL (0.0-0.8); MONO % 5.5 % (0.0-5.0); NEUTROPHILS # 5.6 10^3/uL (1.8-7.7); NEUTROPHILS % 60.7 % (36.0-66.0); PLATELET COUNT, AUTOMATED 329 10^3/uL (150-450); RED CELL DISTRIBUTION WIDTH 13.1 % (11.5-14.5); WHITE BLOOD COUNT 9.3 10^3/uL (4.0-10.0)
[2016-12-07 14:32] LABS: ALBUMIN 3.5 GM/DL (3.2-5.2); ALBUMIN/GLOBULIN RATIO 1.03 (1.00-1.93); ALKALINE PHOSPHATASE 72 U/L (45-117); ALT/SGPT 18 U/L (12-78); AMYLASE 64 U/L (25-115); ANION GAP 6 MEQ/L (8-16); AST/SGOT 15 U/L (15-37); BILIRUBIN,DIRECT < 0.1 MG/DL (0.0-0.2); BILIRUBIN,TOTAL 0.3 MG/DL (0.2-1.0); BLOOD UREA NITROGEN 9 MG/DL (7-18); CALCIUM LEVEL 8.7 MG/DL (8.5-10.1); CARBON DIOXIDE LEVEL 25 MEQ/L (21-32); CHLORIDE LEVEL 110 MEQ/L (98-107); CREATININE FOR GFR 0.62 MG/DL (0.55-1.02); GLOMERULAR FILTRATION RATE > 60.0 (>60); GLUCOSE, FASTING 84 MG/DL (70-105); POTASSIUM SERUM 3.9 MEQ/L (3.5-5.1); SODIUM LEVEL 141 MEQ/L (136-145); TOTAL PROTEIN 6.9 GM/DL (6.4-8.2)
[2016-12-07] MEDS ORDERED: BENT20TA PO (14:58)
[2016-12-07] MEDS ORDERED: SIME1CAP PO (14:58)
[2016-12-07 15:13] VITALS: BP 139/64
[2016-12-23] MEDS ORDERED: CARA1TAB6 PO (14:46)
[2016-12-23] MEDS ORDERED: PROT1TAB2 PO (14:46)
== END 2016-12-07 15:16 | disposition home or self-care (01) ==
LOC: M ED 12:22
DX: G89.29 Other chronic pain (principal); R10.9 Unspecified abdominal pain; R31.29 Other microscopic hematuria; F17.200 Nicotine dependence, unspecified, uncomplicated; Z79.899 Other long term (current) drug therapy; Z91.013 Allergy to seafood; Z91.018 Allergy to other foods
CPT/HCPCS: 80048; 80076; 81001; 81025; 82150; 83690; 85025; 87507; 96372; 99283; J0500

== ENCOUNTER → 2017-03-27 | Outpatient (REF) | payer OTHER | LOC: M LAB REF 14:39 | DX: R19.7 Diarrhea, unspecified (principal) ==

== ENCOUNTER 2017-04-23 08:25 | Day surgery (SDC) | payer OTHER ==
[2017-04-23] MEDS ORDERED: NS 1,000 ML IV (10:00)
[2017-04-23] MEDS ORDERED: fentaNYL 100 MCG/2 ML INJECTION (J3010) As Ordered (10:00)
[2017-04-23] MEDS ORDERED: GLYCOPYRROLATE INJ 0.2 MG/ML 2 ML VIAL As Ordered (10:07)
[2017-04-23] MEDS ORDERED: LIDOCAINE 2% INJ 100 MG/5 ML SDV (FOR ANES.) As Ordered (10:07)
[2017-04-23] MEDS ORDERED: PROPOFOL 200 MG/20 ML VIAL As Ordered ×2 (10:07→10:19)
== END 2017-04-23 11:22 | disposition home or self-care (01) ==
LOC: M OPP 08:25
DX: R19.7 Diarrhea, unspecified (principal); D12.7 Benign neoplasm of rectosigmoid junction; K92.0 Hematemesis; R10.13 Epigastric pain; K21.0 Gastro-esophageal reflux disease with esophagitis; K29.70 Gastritis, unspecified, without bleeding; F32.9 Major depressive disorder, single episode, unspecified; F17.210 Nicotine dependence, cigarettes, uncomplicated; Z91.013 Allergy to seafood; Z91.018 Allergy to other foods
CPT/HCPCS: 45380

== ENCOUNTER → 2017-06-25 | Outpatient (CLI) | payer OTHER | LOC: M RAD 08:42 | DX: K29.70 Gastritis, unspecified, without bleeding (principal) | CPT/HCPCS: 76700 ==

== ENCOUNTER → 2017-09-12 | Outpatient (CLI) | payer OTHER ==
[2017-09-12 12:22] LABS: ALBUMIN 3.4 GM/DL (3.2-5.2); ALBUMIN/GLOBULIN RATIO 0.97 (1.00-1.93); ALKALINE PHOSPHATASE 91 U/L (45-117); ALT/SGPT 15 U/L (12-78); AST/SGOT 9 U/L (7-37); BILIRUBIN,DIRECT 0.1 MG/DL (0.0-0.2); BILIRUBIN,TOTAL 0.4 MG/DL (0.2-1.0); TOTAL PROTEIN 6.9 GM/DL (6.4-8.2)
[2017-09-13 12:02] LABS: HEPATITIS B SURFACE ANTIBODY POSITIVE (POSITIVE); HEPATITIS B SURFACE ANTIGEN NEGATIVE (NEGATIVE)
[2017-09-13 12:55] LABS: HEPATITIS C VIRUS ABY INDEX 2.4 INDEX (<0.8)
[2017-09-17 10:04] LABS: TISSUE TRANSGLUTAMINASE IgA <2 U/mL (0-3)
[2017-09-17 10:04] LABS: ALPHA 2-MACROGLOBULIN 258 mg/dL (110-276); ALT 11 IU/L (0-40); APOLIPOPROTEIN A-1 106 mg/dL (116-209); FIBROSIS SCORE 0.11 (0.00-0.21); GGT 11 IU/L (0-60); HAPTOGLOBIN 202 mg/dL (34-200); HEPATITIS A IgG TOTAL Positive (Negative); HEPATITIS C QUANTITATION HCV Not Detected IU/mL (.); IGASUB3 27.8 mg/dL (13.4-97.9); IgA SERUM (part of Subclasses) 238 mg/dL (87-352); NECROINFLAM SCORE 0.02 (0.00-0.17); NECROINFLAMM GRADE A0-No activity (.); TOTAL BILIRUBIN 0.4 mg/dL (0.0-1.2)
[2017-09-18 00:07] LABS: HCV RNA NAA QUALITATIVE Negative (Negative)
== END ==
LOC: M LAB 10:43
DX: K20.9 Esophagitis, unspecified (principal)
CPT/HCPCS: 84460

== ENCOUNTER 2018-01-27 13:21 | Inpatient (IN) | payer OTHER ==
[2018-01-27] MEDS: MULTIVITAMINS/MINERALS THERAP 1 TAB PO (09:00)
[2018-01-27] MEDS: FOLIC ACID 1 MG TAB PO (09:00)
[2018-01-27 14:43] LABS: HEMATOCRIT 37.6 % (36.0-47.0); HEMOGLOBIN 12.7 g/dl (12.0-15.5); MEAN CORPUSCULAR HEMOGLOBIN 29.9 pg (27.0-33.0); MEAN CORPUSCULAR HGB CONC 33.8 g/dl (32.0-36.5); MEAN CORPUSCULAR VOLUME 88.5 fl (80.0-96.0); PLATELET COUNT, AUTOMATED 337 10^3/uL (150-450); RED BLOOD COUNT 4.25 10^6/uL (4.00-5.40); RED CELL DISTRIBUTION WIDTH 13.5 % (11.5-14.5); WHITE BLOOD COUNT 8.5 10^3/uL (4.0-10.0)
[2018-01-27 15:09] LABS: AMPHETAMINES LEVEL URINE NEGATIVE (NEGATIVE); BARBITURATES URINE NEGATIVE (NEGATIVE); BENZODIAZEPINES URINE NEGATIVE (NEGATIVE); CANNABINOIDS URINE POSITIVE (NEGATIVE); COCAINE METABOLITE URINE NEGATIVE (NEGATIVE); METHADONE URINE NEGATIVE (NEGATIVE); OPIATES URINE NEGATIVE (NEGATIVE); PHENCYCLIDINE URINE NEGATIVE (NEGATIVE)
[2018-01-27 15:11] LABS: CONTROL LINE HCG INT CTR LINE PRESENT; HCG, SERUM QUALITATIVE NEGATIVE (NEGATIVE)
[2018-01-27 15:14] LABS: ACETAMINOPHEN LEVEL < 2.0 UG/ML (10.0-30.0); ALBUMIN 3.5 GM/DL (3.2-5.2); ALBUMIN/GLOBULIN RATIO 1.13 (1.00-1.93); ALKALINE PHOSPHATASE 70 U/L (45-117); ALT/SGPT 15 U/L (12-78); ANION GAP 8 MEQ/L (8-16); AST/SGOT 13 U/L (7-37); BILIRUBIN,DIRECT < 0.1 MG/DL (0.0-0.2); BILIRUBIN,TOTAL 0.3 MG/DL (0.2-1.0); BLOOD UREA NITROGEN 5 MG/DL (7-18); CALCIUM LEVEL 8.5 MG/DL (8.5-10.1); CARBON DIOXIDE LEVEL 26 MEQ/L (21-32); CHLORIDE LEVEL 110 MEQ/L (98-107); CREATININE FOR GFR 0.67 MG/DL (0.55-1.30); ETHYL ALCOHOL (ETHANOL) < 0.003 % (0.000-0.010); GLOMERULAR FILTRATION RATE > 60.0 (>60); GLUCOSE, FASTING 81 MG/DL (70-100); POTASSIUM SERUM 3.5 MEQ/L (3.5-5.1); SALICYLATE LEVEL < 1.7 MG/DL (5.0-30.0); SODIUM LEVEL 144 MEQ/L (136-145); TOTAL PROTEIN 6.6 GM/DL (6.4-8.2)
[2018-01-27] MEDS ORDERED: LORazepam 2 MG TAB PO (18:30)
[2018-01-27] MEDS ORDERED: ACETAMINOPHEN TAB 650MG DOSE (2X325MG) PO (18:30)
[2018-01-27] MEDS ORDERED: MAALOX 30 ML SUSP *UDC PO (18:30)
[2018-01-27] MEDS ORDERED: MOM 30ML SUSPENSION UDC PO (18:30)
[2018-01-27] MEDS: THIAMINE 100 MG TAB PO ×2 (21:00→22:44)
[2018-01-27] MEDS: traZODone 50 MG TAB PO (22:41)
[2018-01-28] MEDS: MULTIVITAMINS/MINERALS THERAP 1 TAB PO (10:01)
[2018-01-28] MEDS: FOLIC ACID 1 MG TAB PO (10:01)
[2018-01-28] MEDS: ESCITALOPRAM OXALATE 10 MG TAB (LEXAPRO) PO (10:02)
[2018-01-28 14:44] LABS: KETONE, URINE AUTO RFX 1+ mg/dL (NEGATIVE); LEUKOCYTE ESTERASE UR AUTO RFX 2+ (NEGATIVE); MUCUS, URINE RFX LARGE (NEGATIVE); NITRITE, URINE AUTO RFX NEGATIVE (NEGATIVE); RBC, URINE AUTO RFX 60 /HPF (0-3); SPECIFIC GRAVITY UR AUTO RFX 1.028 (1.002-1.035); SQUAM EPITHELIAL CELL UR AURFX 3 /HPF (0-6); WBC, URINE AUTO RFX 32 /HPF (0-3)
[2018-01-28] MEDS: PHENAZOPYRIDINE 100 MG TAB PO ×2 (18:05→21:00)
[2018-01-28] MEDS: CEFDINIR 300 MG CAP (OMNICEF) PO (18:06)
[2018-01-28] MEDS: traZODone 50 MG TAB PO (21:49)
[2018-01-29] MEDS: CEFDINIR 300 MG CAP (OMNICEF) PO ×2 (09:41→21:18)
[2018-01-29] MEDS: PHENAZOPYRIDINE 100 MG TAB PO ×3 (09:41→21:18)
[2018-01-29] MEDS: ESCITALOPRAM OXALATE 10 MG TAB (LEXAPRO) PO (09:41)
[2018-01-29] MEDS: traZODone 50 MG TAB PO (23:00)
[2018-01-30] MEDS: CEFDINIR 300 MG CAP (OMNICEF) PO (09:52)
[2018-01-30] MEDS: PHENAZOPYRIDINE 100 MG TAB PO (09:52)
[2018-01-30] MEDS: ESCITALOPRAM OXALATE 10 MG TAB (LEXAPRO) PO (09:52)
== END 2018-01-30 11:00 | disposition home or self-care (01) | DRG 881 ==
LOC: M ED 13:21 → M ED INP 18:28 → M PSY 20:19
DX: F43.21 Adjustment disorder with depressed mood (principal); F17.210 Nicotine dependence, cigarettes, uncomplicated; F10.10 Alcohol abuse, uncomplicated; Z62.810 Personal history of physical and sexual abuse in childhood; Z91.411 Personal history of adult psychological abuse; Z63.5 Disruption of family by separation and divorce; K76.89 Other specified diseases of liver; Z79.899 Other long term (current) drug therapy; Z91.013 Allergy to seafood; Z91.018 Allergy to other foods

== ENCOUNTER → 2018-01-27 | Outpatient (CLI) | payer OTHER ==
[~2018-01-27] MED LIST changes: -AUGM875T28 PO; -CITR1SOL PO; -IBUP-1114 PO; -MUCI600T37 PO; -OMEP40CA2 PO; -PRIL20TA2 PO; +PROHANCE 279.3MG/ML 15ML VIAL (A9576) As Ordered; -SALI0.6523; -TRAM1CAP15 PO; -ZOFR4TAB3 PO
== END ==
LOC: M RAD 16:45
DX: R93.3 Abnormal findings on diagnostic imaging of other parts of digestive tract (principal); D37.6 Neoplasm of uncertain behavior of liver, gallbladder and bile ducts

== ENCOUNTER 2018-04-07 07:46 | Emergency (ER) | payer OTHER ==
[~2018-04-07] VITALS: Ht 162.6 cm; Wt 63.2 kg
[~2018-04-07 07:46] MED LIST changes: +AUGM875T28 PO; +BENT20TA PO; +CARA1TAB6 PO; +CEFD1CAP8 PO; +CEFD300CAP PO; +CITR1SOL PO; +ESCI20TA PO; +ESZO1TAB6 PO; +IBUP-1114 PO; +LEXA1TAB2 PO; +MUCI600T37 PO; +OMEP40CA2 PO; +PHEN-500 PO; +PRIL20TA2 PO; -PROHANCE 279.3MG/ML 15ML VIAL (A9576) As Ordered; +PROT1TAB2 PO; +SALI0.6528; +SIME1CAP PO; +TRAM1CAP15 PO; +ZOFR4TAB14 PO
[2018-04-07] MEDS ORDERED: LUNE2TAB23 PO (07:55)
[2018-04-07] MEDS ORDERED: METOCLOPRAMIDE INJ 10MG/2ML VIAL (J2765) IV ONE (08:15)
[2018-04-07] MEDS ORDERED: NS 1,000 ML IV ONE (08:15)
[2018-04-07 08:56] LABS: BASO % 0.5 % (0.0-1.0); EOS # 0.1 10^3/uL (0.0-0.50); EOS % 1.3 % (0.0-3.0); HEMOGLOBIN 12.7 g/dl (12.0-15.5); LYMPH # 2.8 10^3/uL (1.5-6.5); LYMPH % 37.4 % (24.0-44.0); MEAN CORPUSCULAR HEMOGLOBIN 30.2 pg (27.0-33.0); MEAN CORPUSCULAR HGB CONC 33.4 g/dl (32.0-36.5); MEAN CORPUSCULAR VOLUME 90.3 fl (80.0-96.0); MONO # 0.7 10^3/uL (0.0-0.8); MONO % 8.8 % (0.0-5.0); NEUTROPHILS # 3.9 10^3/uL (1.8-7.7); NEUTROPHILS % 51.6 % (36.0-66.0); PLATELET COUNT, AUTOMATED 315 10^3/uL (150-450); RED BLOOD COUNT 4.21 10^6/uL (4.00-5.40); WHITE BLOOD COUNT 7.5 10^3/uL (4.0-10.0)
[2018-04-07 08:58] LABS: APPEARANCE, URINE CLEAR (CLEAR); BACTERIA, URINE AUTO NEGATIVE (NEGATIVE); BILIRUBIN, URINE AUTO NEGATIVE (NEGATIVE); BLOOD, URINE BLOOD 2+ (NEGATIVE); COLOR, URINE YELLOW (YELLOW); GLUCOSE, URINE (UA) AUTO NEGATIVE (NEGATIVE); KETONE, URINE AUTO NEGATIVE (NEGATIVE); LEUKOCYTE ESTERASE, URINE AUTO NEGATIVE (NEGATIVE); MUCUS, URINE SMALL (NEGATIVE); NITRITE, URINE AUTO NEGATIVE (NEGATIVE); PROTEIN, URINE AUTO NEGATIVE (NEGATIVE); RBC, URINE AUTO 23 /HPF (0-3); SPECIFIC GRAVITY URINE AUTO 1.025 (1.002-1.035); SQUAMOUS EPITHELIAL CELL UR AU 1 /HPF (0-6); UROBILINOGEN, URINE AUTO 0.2 mg/dL (0.0-2.0); WBC, URINE AUTO 1 /HPF (0-3)
[2018-04-07 10:07] LABS: HCG, SERUM QUALITATIVE NEGATIVE (NEGATIVE)
[2018-04-07 10:08] LABS: ALBUMIN 3.3 GM/DL (3.2-5.2); ALT/SGPT 17 U/L (12-78); AMYLASE 53 U/L (25-115); BILIRUBIN,DIRECT 0.1 MG/DL (0.0-0.2); BILIRUBIN,TOTAL 0.4 MG/DL (0.2-1.0); BLOOD UREA NITROGEN 9 MG/DL (7-18); CALCIUM LEVEL 8.1 MG/DL (8.5-10.1); CARBON DIOXIDE LEVEL 23 MEQ/L (21-32); CHLORIDE LEVEL 110 MEQ/L (98-107); CREATININE FOR GFR 0.73 MG/DL (0.55-1.30); GLOMERULAR FILTRATION RATE > 60.0 (>60); GLUCOSE, FASTING 82 MG/DL (70-100); LIPASE 119 U/L (73-393); POTASSIUM SERUM 3.7 MEQ/L (3.5-5.1); SODIUM LEVEL 141 MEQ/L (136-145); TOTAL PROTEIN 6.4 GM/DL (6.4-8.2)
[2018-04-07] MEDS ORDERED: ONDA4TAB6 PO (10:38)
[2018-04-07 10:59] VITALS: BP 115/57
== END 2018-04-07 11:03 | disposition home or self-care (01) ==
LOC: M ED 07:46
DX: R11.2 Nausea with vomiting, unspecified (principal); R19.7 Diarrhea, unspecified; R10.30 Lower abdominal pain, unspecified; F17.200 Nicotine dependence, unspecified, uncomplicated; Z91.018 Allergy to other foods; Z91.013 Allergy to seafood; Z79.899 Other long term (current) drug therapy
CPT/HCPCS: 80048; 80076; 81001; 82150; 83690; 84703; 85025; 96361; 96374; 99284; J2765